=== PATIENT | female | born 1985 | race Caucasian/White ===

== ENCOUNTER 2016-07-22 13:05 | Emergency (ER) | payer BC ==
[~2016-07-22 13:05] MED LIST: ACYCLOVIR15 GM TP; ALBUTEROL17 G1; ALBUTEROL17 G1 INH; ALBUTEROL17 GM INH; AMOXICILLIN500 M1 PO; ANAPROX DS550 M1 PO; BACTRIM DS TABL1 TA1 PO; BACTRIM DS TABL1 TA2 PO; BROMFED DM COU118 ML PO; FLEXERIL10 M1 PO; HYDROCODON-ACE1 EAC9 PO; IBUPROFEN800 MG PO; KEFLEX PO; KEFLEX500 MG PO; KLONOPIN PO; LEVOFLOXACIN500 MG PO; MOTRIN400 M1; MOTRIN600 MG PO; NO MEDICATIONS; PAXIL PO; PHENERGAN/CODEIN5 ML PO; PREDNISONE PO; PRENATAL MULITV1 TAB PO; ROBAXIN 750750 M1; SEPTRA DS PO; TAMIFLU75 M1 DOB; TUSSIONEX PENN473 ML PO; ULTRAM PO; VOLTAREN50 MG PO; VOLTAREN75 MG; VOLTAREN75 MG PO; ZITHROMAX PO; ZOFRAN ODT4 MG DOB; [UNRECOGNIZED DRUG - REMARK]
== END 2016-07-22 13:30 | disposition home or self-care (01) ==
LOC: SED 13:05
DX: L50.9 Urticaria, unspecified (principal); F41.9 Anxiety disorder, unspecified; F17.210 Nicotine dependence, cigarettes, uncomplicated; Z88.8 Allergy status to other drugs, medicaments and biological substances
CPT/HCPCS: 99282

== ENCOUNTER 2016-10-06 19:48 | Emergency (ER) | payer BC | END 2016-10-06 22:45 | disposition left against medical advice (07) | LOC: SED 19:48 | DX: Z53.21 Procedure and treatment not carried out due to patient leaving prior to being seen by health care provider (principal) ==

== ENCOUNTER 2017-01-05 19:08 | Emergency (ER) | payer OTHER ==
[~2017-01-05] VITALS: Ht 167.6 cm; Wt 108.9 kg
--- NOTE | ~2017-01-05 | CR21 ---
[facility] A Service of [facility] & [facility] RADIOLOGY TEXT RESULTS PATIENT: ISABELLA DASILVA LOCATION: SED : 83 UNIT #: [id number] AGE: [address]: Arthur Guzmán SEX: F ORDER DR: [id number] [address] [address] [id number] E MR#: [id number] Acc #: [id number] NAME: ISABELLA DASILVA : 1985 SEX: F STUDY DATE/TIME: 01/05/2017 20:32 UNIT: SED ROOM: STUDY DESCRIPTION: CR Ankle Min 3 Views Rt Attending Physician: Arthur Guzmán P.A.-C. Ordering Physician: Arthur Guzmán P.A.-C. Primary Care Physician: Gianfranco Payan M.D. MEDICAL IMAGING REPORT This report is preliminary unless electronic signature is present. EXAM Right ankle 3 views HISTORY Ankle pain after twisting injury today. FINDINGS 3 views of the right ankle demonstrate soft tissue swelling over the lateral malleolus. Bone alignment is normal. No fracture or joint space narrowing or dislocation. No abnormal sclerosis. IMPRESSION 1. No fracture. 2. Soft tissue swelling over the lateral malleolus. Dictated by... Manny Blackwood M.D. THIS IS AN ELECTRONICALLY VERIFIED REPORT Manny Blackwood M.D. at 01/06/2017 2:32 PM DFL/df TD: 01/06/2017 13:44 JOB #: [id number] MEDICAL IMAGING REPORT Page 1 of 1
--- NOTE | ~2017-01-05 | CR127 ---
[facility] A Service of [facility] & [facility] RADIOLOGY TEXT RESULTS PATIENT: ISABELLA DASILVA LOCATION: SED : 83 UNIT #: [id number] AGE: [address]: Arthur Guzmán SEX: F ORDER DR: [id number] [address] [address] [id number] E MR#: [id number] Acc #: [id number] NAME: ISABELLA DASILVA : 1985 SEX: F STUDY DATE/TIME: 01/05/2017 20:32 UNIT: SED ROOM: STUDY DESCRIPTION: CR Foot Complete Min 3 View Rt Attending Physician: Arthur Guzmán P.A.-C. Ordering Physician: Arthur Guzmán P.A.-C. Primary Care Physician: Gianfranco Payan M.D. MEDICAL IMAGING REPORT This report is preliminary unless electronic signature is present. EXAM Right foot, 3 views. HISTORY Foot pain and swelling after twisting injury today. FINDINGS The tarsal, metatarsal, and phalangeal elements are all anatomically normal in position and alignment. There are no articular defects. No fractures or radiopaque foreign bodies in the soft tissues are apparent. IMPRESSION Normal right foot. Dictated by... Manny Blackwood M.D. THIS IS AN ELECTRONICALLY VERIFIED REPORT Manny Blackwood M.D. at 01/06/2017 2:32 PM DFL/gz TD: 01/06/2017 13:20 JOB #: [id number] MEDICAL IMAGING REPORT Page 1 of 1
== END 2017-01-05 22:09 | disposition home or self-care (01) ==
LOC: SED 19:08
DX: S93.601A Unspecified sprain of right foot, initial encounter (principal); S93.401A Sprain of unspecified ligament of right ankle, initial encounter; Z88.8 Allergy status to other drugs, medicaments and biological substances; W22.8XXA Striking against or struck by other objects, initial encounter; Y92.830 Public park as the place of occurrence of the external cause
CPT/HCPCS: 29515; 73610; 73630; 99283